=== PATIENT | male | born 1985 | race Caucasian/White ===

== ENCOUNTER 2020-01-24 12:00 | Emergency (ER) | payer BC, OTHER ==
[~2020-01-24] VITALS: Ht 177.8 cm; Wt 77.1 kg
[~2020-01-24 12:00] MED LIST: ASPI81CH43
[2020-01-24 12:16] VITALS: BP 152/91
[2020-01-24] MEDS ORDERED: cefTRIAXone SOD 1,000 MG VL IM ONE (13:30)
== END 2020-01-24 13:56 | disposition home or self-care (01) ==
LOC: ER 12:00
DX: S61.237A Puncture wound without foreign body of left little finger without damage to nail, initial encounter (principal); S61.031A Puncture wound without foreign body of right thumb without damage to nail, initial encounter; L08.9 Local infection of the skin and subcutaneous tissue, unspecified; W54.0XXA Bitten by dog, initial encounter; Y93.89 Activity, other specified; Y92.89 Other specified places as the place of occurrence of the external cause; Y99.8 Other external cause status
CPT/HCPCS: 73130; 96372; 99283; J0696

== ENCOUNTER 2020-05-27 11:11 | Emergency (ER) | payer BC, OTHER ==
[~2020-05-27] VITALS: Ht 177.8 cm; Wt 77.1 kg
[2020-05-27 15:00] VITALS: BP 132/74
== END 2020-05-27 16:57 | disposition home or self-care (01) ==
LOC: ER 11:11
DX: U07.1 COVID-19 (principal); J06.9 Acute upper respiratory infection, unspecified; F41.9 Anxiety disorder, unspecified; F17.210 Nicotine dependence, cigarettes, uncomplicated
CPT/HCPCS: 36415; 71045; 87426

== ENCOUNTER 2021-12-14 18:41 | Emergency (ER) | payer SELFPAY ==
[~2021-12-14] VITALS: Ht 177.8 cm; Wt 81.6 kg
[2021-12-15 02:34] VITALS: BP 111/70
== END 2021-12-15 02:46 | disposition left against medical advice (07) ==
LOC: ER 18:41
DX: M79.89 Other specified soft tissue disorders (principal); F10.129 Alcohol abuse with intoxication, unspecified; Y90.9 Presence of alcohol in blood, level not specified; Z53.21 Procedure and treatment not carried out due to patient leaving prior to being seen by health care provider
CPT/HCPCS: 73080